=== PATIENT | male | born 1930 | race Caucasian/White ===

== ENCOUNTER → 2016-11-15 | Outpatient (CLI) | payer OTHER ==
[~2016-11-15] VITALS: Ht 177.8 cm; Wt 75.3 kg
[~2016-11-15] MED LIST: ADENOSINE 63 MG in GIVE UN-DILUTED 0 ML IV ONE; ADENOSINE 90 MG/30 ML INJ IV ONE; DABI75CA3 PO; ESOM40CA39 PO; LEVO100T8 PO; MEGE40SU PO; TOBR0.3S RIGHTEYE
[2016-11-15 11:51] LABS: Urine Bilirubin Negative (Negative); Urine Blood Negative /uL (Negative); Urine Color Yellow (Yellow); Urine Glucose Normal (Normal); Urine Ketone Negative (Negative); Urine Nitrite Negative (Negative); Urine Urobilinogen Normal (Negative)
[2016-11-15 12:08] LABS: Basophils # (auto) 0 uL; Basophils % (auto) 0.3 % (0.0-2.0); CONDITION Y; Eosinophils # (auto) 0 uL; Eosinophils % (auto) 0.8 % (0.0-7.0); Hematocrit 39.7 % (41.0-53.0); Hemoglobin 13.6 g/dL (13.5-17.5); Lymphocytes # (auto) 1.5 uL; Lymphocytes % (auto) 42.6 % (10.0-50.0); Mean Corpuscular Hemoglobin 31.2 pg (28.0-32.0); Mean Corpuscular Hgb Conc. 34.2 g/dL (32.0-36.0); Mean Corpuscular Volume 91.3 fL (80.0-100.0); Mean Platelet Volume 10.5 fL (7.4-10.4); Monocytes # (auto) 0.2 uL; Monocytes % (auto) 6.9 % (0.0-12.0); Neutrophils # (auto) 1.7 uL; Neutrophils % (auto) 49.4 % (37.0-80.0); Platelet Count (auto) 84 10^3/uL (140-450); Red Cell Distribution Width 14.1 % (11.6-16.0); White Blood Cell 3.5 10^3/uL (4.4-10.8)
[2016-11-15 16:34] LABS: Albumin 4.2 g/dL (3.4-5.0); BUN/Creatinine Ratio 21.9; Bilirubin, Direct 0.1 mg/dL (0-0.2); Bilirubin, Total 0.5 mg/dL (0.2-1.0); Calcium 9.5 mg/dL (8.5-10.1); Total Protein 7.9 g/dL (6.4-8.2)
== END | disposition home or self-care (01) ==
LOC: Rad HDHVI 08:28
PROVIDERS: ATTEND Internal Medicine Cardiovascular Disease
DX: I11.0 Hypertensive heart disease with heart failure (principal); I50.23 Acute on chronic systolic (congestive) heart failure; I48.0 Paroxysmal atrial fibrillation; E03.9 Hypothyroidism, unspecified; E11.9 Type 2 diabetes mellitus without complications; E78.00 Pure hypercholesterolemia, unspecified; D64.9 Anemia, unspecified; E55.9 Vitamin D deficiency, unspecified; K74.1 Hepatic sclerosis; N39.0 Urinary tract infection, site not specified; R97.20 Elevated prostate specific antigen [PSA]; R53.81 Other malaise; Z72.0 Tobacco use
CPT/HCPCS: 36415; 78452; 80048; 80061; 80076; 81003; 82306; 83036; 84153; 84403; 84443; 85025; 93005; 93306; 96374; 96375; A9500; J0153

== ENCOUNTER → 2017-08-14 | Outpatient (CLI) | payer OTHER ==
[~2017-08-14] MED LIST changes: -ADENOSINE 63 MG in GIVE UN-DILUTED 0 ML IV ONE; -ADENOSINE 90 MG/30 ML INJ IV ONE; +LEVOFLOXACIN 500MG 100 ML IV ONE; +LEVOFLOXACIN 500MG 100 ML IV SCH; +methylPREDNISolone SOD SUCC 125 MG/2 ML VL IV ONE; +methylPREDNISolone SOD SUCC 125 MG/2 ML VL ONE
[2017-08-14 11:15] VITALS: BP 104/60
[2017-08-14 12:35] VITALS: BP 102/84
[2017-08-14 16:12] LABS: Urine Blood Negative /uL (Negative); Urine Specific Gravity 1.024 (1.001-1.035)
[2017-08-14 16:24] LABS: Potassium 4.4 mmol/L (3.5-5.1)
[2017-08-14 16:37] LABS: Hematocrit 34.9 % (41.0-53.0); Hemoglobin 11.9 g/dL (13.5-17.5); Mean Corpuscular Hemoglobin 30.8 pg (28.0-32.0); Mean Corpuscular Hgb Conc. 34.1 g/dL (32.0-36.0); Mean Corpuscular Volume 90.3 fL (80.0-100.0); Platelet Count (auto) 66 10^3/uL (140-450); Red Blood Cells 3.86 10^6/uL (4.5-5.90); Red Cell Distribution Width 13.4 % (11.8-14.3); White Blood Cell 4.3 10^3/uL (4.4-10.8)
[2017-08-14 16:51] LABS: Basophils % (manual) 0 (0.0-2.0); Blast Cells 0; Metamyelocytes % 0; Myelocytes % 0; Promyelocytes % 0; Reactive Lymphocytes 0
[2017-08-14 17:13] LABS: BUN/Creatinine Ratio 19.6; Calcium 8.9 mg/dL (8.5-10.1)
[2017-08-14 18:03] LABS: Band Neutrophils % (manual) 4; Eosinophils % (manual) 1 (0-7); Lymphocytes % (manual) 18 (10.0-50.0); Monocytes % (manual) 12 (0-12)
== END | disposition home or self-care (01) ==
LOC: Rad HDHVI 11:13
PROVIDERS: ATTEND Internal Medicine Cardiovascular Disease
DX: I50.23 Acute on chronic systolic (congestive) heart failure (principal); D64.9 Anemia, unspecified; N39.0 Urinary tract infection, site not specified; R09.02 Hypoxemia; K44.9 Diaphragmatic hernia without obstruction or gangrene; M85.88 Other specified disorders of bone density and structure, other site; J47.0 Bronchiectasis with acute lower respiratory infection
CPT/HCPCS: 36415; 71250; 80048; 81003; 85007; 85027; 96365; 96375; G0463; J1956

== ENCOUNTER → 2017-09-03 | Outpatient (CLI) | payer OTHER ==
[~2017-09-03] MED LIST changes: -LEVOFLOXACIN 500MG 100 ML IV ONE; -LEVOFLOXACIN 500MG 100 ML IV SCH; +TESTOSTERONE CYPIONATE 200 MG/ML 1ML VIAL IM ONE; -methylPREDNISolone SOD SUCC 125 MG/2 ML VL IV ONE; -methylPREDNISolone SOD SUCC 125 MG/2 ML VL ONE
[2017-09-03 14:30] VITALS: BP 138/77
[2017-09-03 15:23] VITALS: BP 138/85
== END | disposition home or self-care (01) ==
LOC: CHF HDHVI 14:16
PROVIDERS: ATTEND Internal Medicine Cardiovascular Disease
DX: E29.1 Testicular hypofunction (principal); R53.83 Other fatigue; I50.23 Acute on chronic systolic (congestive) heart failure
CPT/HCPCS: 96372; G0463; J1071; 93971

== ENCOUNTER → 2017-09-11 | Outpatient (CLI) | payer OTHER ==
[~2017-09-11] MED LIST changes: -TESTOSTERONE CYPIONATE 200 MG/ML 1ML VIAL IM ONE
== END | disposition home or self-care (01) ==
LOC: Rad HDHVI 15:12
PROVIDERS: ATTEND Internal Medicine Cardiovascular Disease
DX: I73.9 Peripheral vascular disease, unspecified (principal)
CPT/HCPCS: 93926

== ENCOUNTER → 2017-09-17 | Outpatient (CLI) | payer OTHER ==
[~2017-09-17] MED LIST changes: +TESTOSTERONE CYPIONATE 200 MG/ML 1ML VIAL IM ONE
[2017-09-17 13:30] VITALS: BP 112/81
[2017-09-17 14:00] VITALS: BP 117/72
== END | disposition home or self-care (01) ==
LOC: CHF HDHVI 13:37
PROVIDERS: ATTEND Internal Medicine Cardiovascular Disease
DX: E29.1 Testicular hypofunction (principal); I11.0 Hypertensive heart disease with heart failure; I48.0 Paroxysmal atrial fibrillation; I50.32 Chronic diastolic (congestive) heart failure; E11.9 Type 2 diabetes mellitus without complications; E03.9 Hypothyroidism, unspecified; Z72.0 Tobacco use
CPT/HCPCS: 96372; G0463; J1071

== ENCOUNTER → 2017-09-30 | Outpatient (CLI) | payer OTHER ==
[~2017-09-30] VITALS: Ht 1 cm; Wt 0.5 kg
[~2017-09-30] MED LIST changes: +IOHEXOL 350 MG/ML 100ML IJ ONE; +SODIUM CHLORIDE 0.9% 1,000 ML IV SCH; +predniSONE 20 MG TAB ONE; +predniSONE 20 MG TAB PO ONE
[2017-09-30 09:50] VITALS: BP 127/76
[2017-09-30 12:23] LABS: Hematocrit 32.6 % (41.0-53.0); Hemoglobin 10.9 g/dL (13.5-17.5); Mean Corpuscular Hgb Conc. 33.3 g/dL (32.0-36.0); Red Blood Cells 3.62 10^6/uL (4.5-5.90); Red Cell Distribution Width 18.3 % (11.8-14.3); White Blood Cell 4.3 10^3/uL (4.4-10.8)
[2017-09-30 12:57] LABS: Band Neutrophils % (manual) 0; Basophils % (manual) 0 (0.0-2.0); Blast Cells 0; Eosinophils % (manual) 0 (0-7); Metamyelocytes % 0; Myelocytes % 0; Platelet Count (auto) 57 10^3/uL (140-450); Promyelocytes % 0; Reactive Lymphocytes 0
[2017-09-30 13:05] LABS: Albumin 2.8 g/dL (3.4-5.0); BUN/Creatinine Ratio 16.8; Calcium 8.9 mg/dL (8.5-10.1); Potassium 3.9 mmol/L (3.5-5.1); Total Protein 7.2 g/dL (6.4-8.2)
[2017-09-30 13:24] LABS: Lymphocytes % (manual) 17 (10.0-50.0); Monocytes % (manual) 4 (0-12)
[2017-09-30 14:10] VITALS: BP 114/71
== END | disposition home or self-care (01) ==
LOC: CHF HDHVI 10:04
PROVIDERS: ATTEND Internal Medicine Cardiovascular Disease
DX: J43.9 Emphysema, unspecified (principal); J02.9 Acute pharyngitis, unspecified; E03.9 Hypothyroidism, unspecified; I13.0 Hypertensive heart and chronic kidney disease with heart failure and stage 1 through stage 4 chronic kidney disease, or unspecified chronic kidney disease; E11.22 Type 2 diabetes mellitus with diabetic chronic kidney disease; N18.3 Chronic kidney disease, stage 3 (moderate); I50.23 Acute on chronic systolic (congestive) heart failure; K21.9 Gastro-esophageal reflux disease without esophagitis; D50.9 Iron deficiency anemia, unspecified; J42 Unspecified chronic bronchitis; E29.1 Testicular hypofunction; E07.9 Disorder of thyroid, unspecified; I50.32 Chronic diastolic (congestive) heart failure; I48.0 Paroxysmal atrial fibrillation; Z99.81 Dependence on supplemental oxygen; Z79.899 Other long term (current) drug therapy; Z86.73 Personal history of transient ischemic attack (TIA), and cerebral infarction without residual deficits
CPT/HCPCS: 36415; 70491; 80053; 82565; 84443; 85007; 85027; 96360; 96372; G0463; J1071; J7030; J7512; Q9967; 96365

== ENCOUNTER 2017-10-13 20:20 | Inpatient (IN) | payer OTHER ==
[~2017-10-13] VITALS: Ht 172.7 cm; Wt 74.5 kg
[~2017-10-13 20:20] MED LIST changes: -IOHEXOL 350 MG/ML 100ML IJ ONE; -SODIUM CHLORIDE 0.9% 1,000 ML IV SCH; -TESTOSTERONE CYPIONATE 200 MG/ML 1ML VIAL IM ONE; -predniSONE 20 MG TAB ONE; -predniSONE 20 MG TAB PO ONE
[2017-10-13 21:16] LABS: Basophils # (auto) 0 uL; Eosinophils # (auto) 0 uL; Hemoglobin 10.5 g/dL (13.5-17.5); Monocytes # (auto) 0.2 uL; Neutrophils # (auto) 5.2 uL; Nucleated Red Blood Cells % 0.1 %; White Blood Cell 6.4 10^3/uL (4.4-10.8)
[2017-10-13 21:18] LABS: Basophils % (auto) 0.6 % (0.0-2.0); Eosinophils % (auto) 0.2 % (0.0-7.0); Hematocrit 31.4 % (41.0-53.0); Lymphocytes # (auto) 0.9 uL; Lymphocytes % (auto) 14.7 % (10.0-50.0); Mean Corpuscular Hemoglobin 30.8 pg (28.0-32.0); Mean Corpuscular Hgb Conc. 33.3 g/dL (32.0-36.0); Mean Corpuscular Volume 92.4 fL (80.0-100.0); Monocytes % (auto) 3.3 % (0.0-12.0); Neutrophils % (auto) 81.2 % (37.0-80.0); Platelet Count (auto) 41 10^3/uL (140-450)
[2017-10-13] MEDS ORDERED: methylPREDNISolone SOD SUCC 125 MG/2 ML VL IV ONE (21:30)
[2017-10-13] MEDS ORDERED: FAMOTIDINE (10MG/ML) 2ML VL IV ONE (21:30)
[2017-10-13] MEDS ORDERED: diphenhdrAMINE HCL 50 MG/1 ML VL IV ONE (21:30)
[2017-10-13] MEDS ORDERED: LORazepam 2MG/ML-1ML VIAL ONE ×2 (21:38→21:41)
[2017-10-13 21:45] LABS: Albumin 2.5 g/dL (3.4-5.0); BUN/Creatinine Ratio 14.6; Bilirubin, Total 0.4 mg/dL (0.2-1.0); Calcium 8.1 mg/dL (8.5-10.1); Magnesium 2.3 mg/dL (1.6-2.6); Potassium 4.6 mmol/L (3.5-5.1); Total Protein 6.3 g/dL (6.4-8.2)
[2017-10-13 21:48] LABS: Red Cell Distribution Width 21.6 % (11.8-14.3)
[2017-10-13 22:13] LABS: Lactic Acid w/Reflex 3.7 mmol/L (0.4-2.0)
[2017-10-13] MEDS ORDERED: LEVOFLOXACIN 750MG 150 ML IV ONE (22:15)
[2017-10-13] MEDS ORDERED: LORazepam 2MG/ML-1ML VIAL IV ONE (22:15)
[2017-10-13] MEDS ORDERED: PIPERACILLIN-TAZOB 3.375GM 100 ML IV ONE (22:15)
[2017-10-13] MEDS ORDERED: ACETAMINOPHEN 650 mg PER 20 mL UD GT ONE (22:30)
[2017-10-13] MEDS ORDERED: SODIUM CHLORIDE 0.9% 2,000 ML IV ONE (22:30)
[2017-10-13 22:52] LABS: INR 1.26 (0.9-1.15); Prothrombin Time 13.3 sec (9.27-12.13)
[2017-10-13] MEDS ORDERED: ACETAMINOPHEN 650 MG RECT SUPP PR ONE (22:54)
[2017-10-13 23:24] LABS: Urine Bacteria NONE SEEN /hpf (None Seen); Urine Blood TRACE /uL (Negative); Urine Mucus FEW (None Seen); Urine Specific Gravity 1.019 (1.001-1.035); Urine WBC 1 /hpf (0 - 3)
[2017-10-14] MEDS ORDERED: ACETAMINOPHEN 650 MG RECT SUPP PR ONE
[2017-10-14] MEDS ORDERED: SODIUM CHLORIDE 0.9% 1,000 ML IV SCH (00:15)
[2017-10-14] MEDS ORDERED: MORPHINE SULF(PF) 0.5MG/ML 10ML VIAL IV PRN (00:15)
[2017-10-14] MEDS ORDERED: NITROGLYCERIN 0.4 MG SL TAB SL PRN (00:15)
[2017-10-14] MEDS ORDERED: ONDANSETRON HCL 4 MG/2 ML VIAL IV PRN (00:15)
[2017-10-14] MEDS ORDERED: diphenhdrAMINE HCL 25 MG CAP PO PRN (00:15)
[2017-10-14] MEDS ORDERED: ACETAMINOPHEN 325 MG TAB PO PRN (00:15)
[2017-10-14] MEDS ORDERED: LEVOFLOXACIN 750MG 150 ML IV SCH (01:00)
[2017-10-14] MEDS: ENOXAPARIN SOD 30 MG/0.3 ML SYRINGE SC SCH (02:18)
[2017-10-14] MEDS: SODIUM CHLORIDE 0.9% 1,000 ML IV SCH ×3 (03:45→23:30)
[2017-10-14 05:45] VITALS: BP 103/58
[2017-10-14 06:05] VITALS: BP 100/60
[2017-10-14 06:50] VITALS: BP 90/58
[2017-10-14] MEDS ORDERED: cefTRIAXone 1GM/10ml IVPUSH 10 ML IV SCH (09:00)
[2017-10-14] MEDS: LEVOTHYROXINE SODIUM 25 MCG TAB PO SCH (09:37)
[2017-10-14] MEDS: methylPREDNISolone SOD SUCC 125 MG/2 ML VL IV SCH ×2 (09:37→22:23)
[2017-10-14] MEDS: LEVOTHYROXINE SODIUM 100 MCG TAB PO SCH (09:37)
[2017-10-14] MEDS ORDERED: LEVOTHYROXINE SODIUM 25 MCG TAB PO SCH (10:00)
[2017-10-14] MEDS: PANTOPRAZOLE 40 MG TAB PO SCH (10:00)
[2017-10-14 11:28] VITALS: BP 101/64
[2017-10-14 11:43] VITALS: BP 105/73
[2017-10-14] MEDS ORDERED: VANCOMYCIN PER PHARMACY 0 MG IV SCH (13:15)
[2017-10-14] MEDS ORDERED: VANCOMYCIN 1GM/250ML 250 ML IV ONE (14:00)
[2017-10-14] MEDS: LORazepam 0.5 MG TAB PO PRN (15:50)
[2017-10-14 18:15] VITALS: BP 94/108
[2017-10-14] MEDS ORDERED: HALOPERIDOL LACTATE 5 MG/ML INJ VIAL ONE (18:28)
[2017-10-14] MEDS ORDERED: HALOPERIDOL LACTATE 5 MG/ML INJ VIAL IM ONE (18:30)
[2017-10-14] MEDS ORDERED: LORazepam 2MG/ML-1ML VIAL IM ONE (19:45)
[2017-10-14] MEDS ORDERED: diphenhdrAMINE HCL 50 MG/1 ML VL IV ONE (19:45)
[2017-10-14] MEDS: ATORVASTATIN 20 MG TAB PO SCH (22:00)
[2017-10-14 22:01] LABS: % Iron Saturation 11.3 % (20-55)
[2017-10-15] MEDS: ENOXAPARIN SOD 30 MG/0.3 ML SYRINGE SC SCH (02:00)
[2017-10-15] MEDS: HALOPERIDOL LACTATE 5 MG/ML INJ VIAL IM PRN ×3 (02:27→14:22)
[2017-10-15 06:06] LABS: Basophils # (auto) 0 uL; Eosinophils # (auto) 0 uL; Monocytes # (auto) 0.2 uL
[2017-10-15 06:08] LABS: Basophils % (auto) 0.3 % (0.0-2.0); Hematocrit 26.3 % (41.0-53.0); Lymphocytes # (auto) 0.3 uL; Lymphocytes % (auto) 5.9 % (10.0-50.0); Mean Corpuscular Hemoglobin 30.9 pg (28.0-32.0); Mean Corpuscular Hgb Conc. 34.1 g/dL (32.0-36.0); Mean Corpuscular Volume 90.5 fL (80.0-100.0); Neutrophils # (auto) 5.2 uL; Neutrophils % (auto) 90.8 % (37.0-80.0); Nucleated Red Blood Cells % 0.1 %; White Blood Cell 5.7 10^3/uL (4.4-10.8)
[2017-10-15 06:11] LABS: Platelet Count (auto) 40 10^3/uL (140-450); Red Cell Distribution Width 21.2 % (11.8-14.3)
[2017-10-15 06:39] LABS: Albumin 2.4 g/dL (3.4-5.0); Calcium 7.5 mg/dL (8.5-10.1)
[2017-10-15 06:41] LABS: BUN/Creatinine Ratio 20.3
[2017-10-15 06:44] LABS: Bilirubin, Total 0.3 mg/dL (0.2-1.0); Total Protein 5.8 g/dL (6.4-8.2)
[2017-10-15] MEDS: LEVOTHYROXINE SODIUM 25 MCG TAB PO SCH (07:00)
[2017-10-15] MEDS: LEVOTHYROXINE SODIUM 100 MCG TAB PO SCH (07:00)
[2017-10-15] MEDS: PANTOPRAZOLE 40 MG TAB PO SCH (07:41)
[2017-10-15] MEDS: SODIUM CHLORIDE 0.9% 1,000 ML IV SCH (09:45)
[2017-10-15] MEDS: methylPREDNISolone SOD SUCC 125 MG/2 ML VL IV SCH ×2 (09:59→21:03)
[2017-10-15] MEDS: LEVOFLOXACIN 250MG 50 ML IV SCH (09:59)
[2017-10-15] MEDS ORDERED: D5W 5% 1,000 ML IV SCH (10:00)
[2017-10-15] MEDS: VANCOMYCIN 1GM/250ML 250 ML IV SCH (10:43)
[2017-10-15] MEDS: LORazepam 0.5 MG TAB PO PRN (14:22)
[2017-10-15] MEDS: D5W 5% 1,000 ML IV SCH (14:38)
[2017-10-15 18:43] VITALS: BP 127/75
[2017-10-15] MEDS ORDERED: PNEUMOCOCCAL VACC POLYS 25 MCG/0.5 ML VIAL IM ONE (19:00)
[2017-10-15] MEDS ORDERED: HALOPERIDOL LACTATE 5 MG/ML INJ VIAL IM PRN (19:30)
[2017-10-15] MEDS ORDERED: ASPirin-EC 81 mg tab PO SCH (19:41)
[2017-10-15] MEDS: ATORVASTATIN 20 MG TAB PO SCH (21:03)
[2017-10-15] MEDS: TEMAZEPAM 15 MG CAP PO PRN (21:03)
[2017-10-15 22:00] VITALS: BP 106/56
[2017-10-16] MEDS: D5W 5% 1,000 ML IV SCH (04:19)
[2017-10-16] MEDS: VANCOMYCIN 1GM/250ML 250 ML IV SCH (04:32)
[2017-10-16 05:00] VITALS: BP 122/75
[2017-10-16 06:05] LABS: Basophils # (auto) 0 uL; Eosinophils # (auto) 0 uL; Hemoglobin 8.6 g/dL (13.5-17.5); Mean Corpuscular Hemoglobin 30.4 pg (28.0-32.0); Mean Corpuscular Volume 90.1 fL (80.0-100.0); Monocytes # (auto) 0.1 uL; Nucleated Red Blood Cells % 0.1 %; Platelet Count (auto) 43 10^3/uL (140-450); Red Blood Cells 2.82 10^6/uL (4.5-5.90)
[2017-10-16 06:11] LABS: Basophils % (auto) 0.1 % (0.0-2.0); Hematocrit 25.4 % (41.0-53.0); Lymphocytes # (auto) 0.4 uL; Mean Corpuscular Hgb Conc. 33.7 g/dL (32.0-36.0); Monocytes % (auto) 2.2 % (0.0-12.0); Neutrophils # (auto) 4.6 uL; Neutrophils % (auto) 90.7 % (37.0-80.0)
[2017-10-16 06:13] LABS: Red Cell Distribution Width 21.2 % (11.8-14.3)
[2017-10-16 06:29] LABS: Albumin 2.2 g/dL (3.4-5.0); Bilirubin, Total 0.3 mg/dL (0.2-1.0); Calcium 7.4 mg/dL (8.5-10.1); Potassium 3.8 mmol/L (3.5-5.1); Total Protein 5.3 g/dL (6.4-8.2)
[2017-10-16] MEDS: LEVOTHYROXINE SODIUM 100 MCG TAB PO SCH (06:40)
[2017-10-16] MEDS: LEVOTHYROXINE SODIUM 25 MCG TAB PO SCH (06:41)
[2017-10-16 09:00] VITALS: BP 98/53
[2017-10-16] MEDS ORDERED: ASPirin-EC 81 mg tab PO SCH (10:00)
[2017-10-16] MEDS: LEVOFLOXACIN 250MG 50 ML IV SCH (10:50)
[2017-10-16] MEDS: methylPREDNISolone SOD SUCC 125 MG/2 ML VL IV SCH ×2 (10:50→22:31)
[2017-10-16] MEDS: PANTOPRAZOLE 40 MG TAB PO SCH (10:50)
[2017-10-16 13:00] VITALS: BP 113/68
[2017-10-16 17:00] VITALS: BP 123/88
[2017-10-16 22:00] VITALS: BP 122/69
[2017-10-16] MEDS: TEMAZEPAM 15 MG CAP PO PRN (22:30)
[2017-10-16] MEDS: ATORVASTATIN 20 MG TAB PO SCH (22:30)
[2017-10-17 04:37] VITALS: BP 130/73
[2017-10-17 06:20] LABS: Basophils # (auto) 0 uL; Eosinophils # (auto) 0 uL; Hemoglobin 9.1 g/dL (13.5-17.5); Lymphocytes # (auto) 0.4 uL; Nucleated Red Blood Cells % 0.1 %
[2017-10-17 06:23] LABS: Basophils % (auto) 0.3 % (0.0-2.0); Hematocrit 26.3 % (41.0-53.0); Lymphocytes % (auto) 8.3 % (10.0-50.0); Mean Corpuscular Hemoglobin 30.8 pg (28.0-32.0); Mean Corpuscular Hgb Conc. 34.5 g/dL (32.0-36.0); Mean Corpuscular Volume 89.2 fL (80.0-100.0); Monocytes # (auto) 0 uL; Neutrophils # (auto) 4.5 uL; Neutrophils % (auto) 90.4 % (37.0-80.0); Red Blood Cells 2.95 10^6/uL (4.5-5.90)
[2017-10-17 06:25] LABS: Platelet Count (auto) 41 10^3/uL (140-450); Red Cell Distribution Width 20.8 % (11.8-14.3)
[2017-10-17] MEDS: LEVOTHYROXINE SODIUM 100 MCG TAB PO SCH (06:27)
[2017-10-17] MEDS: LEVOTHYROXINE SODIUM 25 MCG TAB PO SCH (06:27)
[2017-10-17 06:41] LABS: Albumin 2.3 g/dL (3.4-5.0); Bilirubin, Total 0.3 mg/dL (0.2-1.0); Calcium 7.6 mg/dL (8.5-10.1); Potassium 3.9 mmol/L (3.5-5.1); Total Protein 5.4 g/dL (6.4-8.2)
[2017-10-17] MEDS: methylPREDNISolone SOD SUCC 125 MG/2 ML VL IV SCH ×2 (11:02→22:41)
[2017-10-17] MEDS: PANTOPRAZOLE 40 MG TAB PO SCH (11:02)
[2017-10-17] MEDS: LEVOFLOXACIN 250MG 50 ML IV SCH (11:02)
[2017-10-17 22:00] VITALS: BP 151/90
[2017-10-17] MEDS: ATORVASTATIN 20 MG TAB PO SCH (22:41)
[2017-10-18 04:05] VITALS: BP 116/79
[2017-10-18 06:01] LABS: Basophils # (auto) 0 uL; Basophils % (auto) 0.1 % (0.0-2.0); Eosinophils # (auto) 0 uL; Hemoglobin 9.4 g/dL (13.5-17.5); Lymphocytes # (auto) 0.5 uL; Mean Corpuscular Volume 90.4 fL (80.0-100.0); Monocytes # (auto) 0.1 uL; Monocytes % (auto) 2.1 % (0.0-12.0); Neutrophils % (auto) 88.6 % (37.0-80.0)
[2017-10-18 06:03] LABS: Eosinophils % (auto) 0.1 % (0.0-7.0); Hematocrit 27.6 % (41.0-53.0); Lymphocytes % (auto) 9.1 % (10.0-50.0); Mean Corpuscular Hemoglobin 30.8 pg (28.0-32.0); Neutrophils # (auto) 4.5 uL; Nucleated Red Blood Cells % 0.2 %; Platelet Count (auto) 40 10^3/uL (140-450); Red Blood Cells 3.05 10^6/uL (4.5-5.90); White Blood Cell 5.1 10^3/uL (4.4-10.8)
[2017-10-18 06:04] LABS: Red Cell Distribution Width 21.5 % (11.8-14.3)
[2017-10-18] MEDS: LEVOTHYROXINE SODIUM 100 MCG TAB PO SCH (07:15)
[2017-10-18] MEDS: LEVOTHYROXINE SODIUM 25 MCG TAB PO SCH (07:15)
[2017-10-18 08:46] VITALS: BP 119/81
[2017-10-18] MEDS: methylPREDNISolone SOD SUCC 125 MG/2 ML VL IV SCH ×2 (10:38→21:47)
[2017-10-18] MEDS: PANTOPRAZOLE 40 MG TAB PO SCH (10:38)
[2017-10-18] MEDS: LEVOFLOXACIN 250MG 50 ML IV SCH (10:38)
[2017-10-18 13:14] VITALS: BP 114/66
[2017-10-18 16:50] VITALS: BP 139/81
[2017-10-18] MEDS: ATORVASTATIN 20 MG TAB PO SCH (21:47)
[2017-10-18 22:00] VITALS: BP 129/74
[2017-10-19 05:00] VITALS: BP 109/54
[2017-10-19 05:55] LABS: Hematocrit 28.5 % (41.0-53.0)
[2017-10-19 05:57] LABS: Hemoglobin 9.7 g/dL (13.5-17.5); Mean Corpuscular Hemoglobin 30.4 pg (28.0-32.0); Mean Corpuscular Volume 89.4 fL (80.0-100.0); Platelet Count (auto) 36 10^3/uL (140-450); Red Blood Cells 3.19 10^6/uL (4.5-5.90); White Blood Cell 4.9 10^3/uL (4.4-10.8)
[2017-10-19] MEDS: LEVOTHYROXINE SODIUM 100 MCG TAB PO SCH (05:59)
[2017-10-19] MEDS: LEVOTHYROXINE SODIUM 25 MCG TAB PO SCH (05:59)
[2017-10-19 06:14] LABS: Basophils % (manual) 0 (0.0-2.0); Blast Cells 0; Eosinophils % (manual) 0 (0-7); Metamyelocytes % 0; Myelocytes % 0; Promyelocytes % 0; Reactive Lymphocytes 0; Red Cell Distribution Width 21.4 % (11.8-14.3)
[2017-10-19 07:14] LABS: Band Neutrophils % (manual) 4; Lymphocytes % (manual) 12 (10.0-50.0); Monocytes % (manual) 1 (0-12)
[2017-10-19] MEDS: HYDROcodone-ACET 5/325MG TAB PO PRN ×3 (08:00→16:05)
[2017-10-19 08:54] VITALS: BP 128/66
[2017-10-19] MEDS: methylPREDNISolone SOD SUCC 125 MG/2 ML VL IV SCH (09:44)
[2017-10-19] MEDS: LEVOFLOXACIN 250MG 50 ML IV SCH (09:44)
[2017-10-19] MEDS: PANTOPRAZOLE 40 MG TAB PO SCH (09:44)
[2017-10-19 13:00] VITALS: BP 124/64
[2017-10-19 16:29] VITALS: BP 124/69
[2017-10-19 21:30] VITALS: BP 143/80
[2017-10-20] MEDS: methylPREDNISolone SOD SUCC 125 MG/2 ML VL IV SCH ×3 (00:12→22:25)
[2017-10-20] MEDS: ATORVASTATIN 20 MG TAB PO SCH ×2 (00:12→22:25)
[2017-10-20 06:15] LABS: Hemoglobin 9.6 g/dL (13.5-17.5); White Blood Cell 5.3 10^3/uL (4.4-10.8)
[2017-10-20] MEDS: LEVOTHYROXINE SODIUM 100 MCG TAB PO SCH (06:22)
[2017-10-20] MEDS: LEVOTHYROXINE SODIUM 25 MCG TAB PO SCH (06:22)
[2017-10-20 06:24] LABS: Hematocrit 27.6 % (41.0-53.0); Mean Corpuscular Hemoglobin 30.8 pg (28.0-32.0); Mean Corpuscular Hgb Conc. 34.6 g/dL (32.0-36.0); Mean Corpuscular Volume 88.9 fL (80.0-100.0); Platelet Count (auto) 32 10^3/uL (140-450); Red Blood Cells 3.11 10^6/uL (4.5-5.90)
[2017-10-20 06:27] LABS: Basophils % (manual) 0 (0.0-2.0); Blast Cells 0; Eosinophils % (manual) 0 (0-7); Metamyelocytes % 0; Myelocytes % 0; Promyelocytes % 0; Reactive Lymphocytes 0; Red Cell Distribution Width 21.3 % (11.8-14.3)
[2017-10-20 07:40] LABS: Band Neutrophils % (manual) 3; Lymphocytes % (manual) 8 (10.0-50.0); Monocytes % (manual) 3 (0-12)
[2017-10-20 08:00] VITALS: BP 113/70
[2017-10-20 09:00] VITALS: BP 113/70
[2017-10-20] MEDS: PANTOPRAZOLE 40 MG TAB PO SCH (09:35)
[2017-10-20] MEDS: LEVOFLOXACIN 250MG 50 ML IV SCH (09:35)
[2017-10-20 13:00] VITALS: BP 144/77
[2017-10-20 17:00] VITALS: BP 143/86
[2017-10-20 21:30] VITALS: BP 108/74
[2017-10-21 05:00] VITALS: BP 145/81
[2017-10-21 05:57] LABS: Hemoglobin 10.2 g/dL (13.5-17.5)
[2017-10-21 05:58] LABS: Mean Corpuscular Hemoglobin 30.5 pg (28.0-32.0); Mean Corpuscular Volume 89.7 fL (80.0-100.0); Platelet Count (auto) 38 10^3/uL (140-450); Red Blood Cells 3.34 10^6/uL (4.5-5.90); White Blood Cell 6.7 10^3/uL (4.4-10.8)
[2017-10-21 06:15] LABS: Red Cell Distribution Width 21.3 % (11.8-14.3)
[2017-10-21 06:16] LABS: Basophils % (manual) 0 (0.0-2.0); Blast Cells 0; Promyelocytes % 0; Reactive Lymphocytes 0
[2017-10-21 06:54] LABS: Band Neutrophils % (manual) 4; Eosinophils % (manual) 1 (0-7); Lymphocytes % (manual) 9 (10.0-50.0); Metamyelocytes % 1; Monocytes % (manual) 4 (0-12); Myelocytes % 1
[2017-10-21] MEDS: LEVOTHYROXINE SODIUM 25 MCG TAB PO SCH (06:58)
[2017-10-21] MEDS: LEVOTHYROXINE SODIUM 100 MCG TAB PO SCH (06:59)
[2017-10-21 08:45] VITALS: BP 133/79
[2017-10-21] MEDS: PANTOPRAZOLE 40 MG TAB PO SCH (10:50)
[2017-10-21] MEDS: methylPREDNISolone SOD SUCC 125 MG/2 ML VL IV SCH (10:51)
[2017-10-21] MEDS: LEVOFLOXACIN 250MG 50 ML IV SCH (10:51)
[2017-10-21 13:00] VITALS: BP 142/99
[2017-10-21 17:00] VITALS: BP 135/70
[2017-10-27] MEDS ORDERED: LORazepam 2MG/ML-1ML VIAL IV STA (07:05)
== END 2017-10-21 20:25 | disposition home or self-care (01) | DRG 871 ==
LOC: EDUNIT# 20:20 → ER 20:20 → EDBD 20:20 → TELE 20:21 → TELE-WESTW 10-15 17:21 → WEST WING 10-15 20:35
PROVIDERS: ADMIT Nurse Practitioner; ATTEND Internal Medicine Cardiovascular Disease
PROC: 30233L1 Transfusion of Nonautologous Fresh Plasma into Peripheral Vein, Percutaneous Approach (ICD-10-PCS; principal; 2017-10-14)
PROC: 30233R1 Transfusion of Nonautologous Platelets into Peripheral Vein, Percutaneous Approach (ICD-10-PCS; 2017-10-14)
PROC: 30233K1 Transfusion of Nonautologous Frozen Plasma into Peripheral Vein, Percutaneous Approach (ICD-10-PCS; 2017-10-14)
DX: A41.9 Sepsis, unspecified organism (principal); J96.20 Acute and chronic respiratory failure, unspecified whether with hypoxia or hypercapnia; G93.41 Metabolic encephalopathy; E44.0 Moderate protein-calorie malnutrition; D61.818 Other pancytopenia; N17.9 Acute kidney failure, unspecified; I48.2 Chronic atrial fibrillation; R21 Rash and other nonspecific skin eruption; I12.9 Hypertensive chronic kidney disease with stage 1 through stage 4 chronic kidney disease, or unspecified chronic kidney disease; N18.3 Chronic kidney disease, stage 3 (moderate); N19 Unspecified kidney failure; Z86.73 Personal history of transient ischemic attack (TIA), and cerebral infarction without residual deficits; K21.9 Gastro-esophageal reflux disease without esophagitis; D50.9 Iron deficiency anemia, unspecified; E03.9 Hypothyroidism, unspecified; Z87.891 Personal history of nicotine dependence; Z99.81 Dependence on supplemental oxygen; Z86.718 Personal history of other venous thrombosis and embolism; Z82.49 Family history of ischemic heart disease and other diseases of the circulatory system; Z85.850 Personal history of malignant neoplasm of thyroid; Z80.42 Family history of malignant neoplasm of prostate; Z80.1 Family history of malignant neoplasm of trachea, bronchus and lung; Z79.899 Other long term (current) drug therapy; Z79.82 Long term (current) use of aspirin; J44.9 Chronic obstructive pulmonary disease, unspecified; Z88.0 Allergy status to penicillin; Z88.2 Allergy status to sulfonamides
CPT/HCPCS: 36415; 36430; 51702; 70450; 71045; 80053; 80202; 81001; 82607; 82728; 83010; 83540; 83550; 83605; 83615; 83735; 83880; 84295; 84484; 85007; 85025; 85027; 85610; 85652; 86850; 86880; 86900; 86901; 87040; 93005; 96365; 96375; 97116; 97530; A4565; J1956; J2543; J3490

== ENCOUNTER → 2017-10-31 | Outpatient (CLI) | payer OTHER ==
[2017-10-31 16:22] LABS: BUN/Creatinine Ratio 17.1; Potassium 4.1 mmol/L (3.5-5.1)
[2017-10-31 16:36] LABS: Basophils # (auto) 0 uL; Eosinophils # (auto) 0 uL; Eosinophils % (auto) 0.4 % (0.0-7.0); Lymphocytes # (auto) 1.2 uL; Monocytes # (auto) 0.3 uL; White Blood Cell 3.6 10^3/uL (4.4-10.8)
[2017-10-31 16:39] LABS: Basophils % (auto) 0.7 % (0.0-2.0); Hematocrit 34.8 % (41.0-53.0); Hemoglobin 11.3 g/dL (13.5-17.5); Lymphocytes % (auto) 33.9 % (10.0-50.0); Mean Corpuscular Hemoglobin 30.2 pg (28.0-32.0); Mean Corpuscular Hgb Conc. 32.4 g/dL (32.0-36.0); Mean Corpuscular Volume 93.3 fL (80.0-100.0); Monocytes % (auto) 7.7 % (0.0-12.0); Neutrophils % (auto) 57.3 % (37.0-80.0); Nucleated Red Blood Cells % 0.3 %; Platelet Count (auto) 57 10^3/uL (140-450); Red Blood Cells 3.73 10^6/uL (4.5-5.90)
[2017-10-31 16:47] LABS: Red Cell Distribution Width 25.3 % (11.8-14.3)
== END | disposition home or self-care (01) ==
LOC: LAB 13:33
PROVIDERS: ATTEND Internal Medicine Cardiovascular Disease
DX: I13.0 Hypertensive heart and chronic kidney disease with heart failure and stage 1 through stage 4 chronic kidney disease, or unspecified chronic kidney disease (principal); E11.22 Type 2 diabetes mellitus with diabetic chronic kidney disease; I50.23 Acute on chronic systolic (congestive) heart failure; N18.3 Chronic kidney disease, stage 3 (moderate); D64.9 Anemia, unspecified; J44.9 Chronic obstructive pulmonary disease, unspecified; E03.9 Hypothyroidism, unspecified; Z79.899 Other long term (current) drug therapy
CPT/HCPCS: 36415; 80048; 85025

== ENCOUNTER → 2017-12-02 | Outpatient (CLI) | payer OTHER ==
[~2017-12-02] MED LIST changes: -LEVO100T8 PO; +LEVO125T7 PO
[2017-12-02 16:06] LABS: White Blood Cell 3.1 10^3/uL (4.4-10.8)
[2017-12-02 16:11] LABS: Hematocrit 31.5 % (41.0-53.0); Hemoglobin 10.4 g/dL (13.5-17.5); Mean Corpuscular Hemoglobin 31.5 pg (28.0-32.0); Mean Corpuscular Hgb Conc. 33.2 g/dL (32.0-36.0); Mean Corpuscular Volume 94.9 fL (80.0-100.0); Red Blood Cells 3.31 10^6/uL (4.5-5.90)
[2017-12-02 16:24] LABS: Calcium 7.8 mg/dL (8.5-10.1)
[2017-12-02 16:30] LABS: Platelet Count (auto) 39 10^3/uL (140-450); Red Cell Distribution Width 23.4 % (11.8-14.3)
[2017-12-02 16:31] LABS: Band Neutrophils % (manual) 0; Basophils % (manual) 0 (0.0-2.0); Blast Cells 0; Eosinophils % (manual) 0 (0-7); Promyelocytes % 0
[2017-12-02 18:50] LABS: Lymphocytes % (manual) 25 (10.0-50.0); Metamyelocytes % 2; Monocytes % (manual) 14 (0-12); Myelocytes % 1; Reactive Lymphocytes 2
== END | disposition home or self-care (01) ==
LOC: LAB 11:07
PROVIDERS: ATTEND Internal Medicine Cardiovascular Disease
DX: D64.9 Anemia, unspecified (principal); I10 Essential (primary) hypertension; I48.91 Unspecified atrial fibrillation
CPT/HCPCS: 36415; 80048; 85007; 85027

== ENCOUNTER → 2017-12-27 | Outpatient (CLI) | payer OTHER ==
[2017-12-27 12:45] LABS: Basophils # (auto) 0 uL; Basophils % (auto) 0.9 % (0.0-2.0); Eosinophils # (auto) 0 uL; Eosinophils % (auto) 0.2 % (0.0-7.0); Hematocrit 33.2 % (41.0-53.0); Hemoglobin 11.1 g/dL (13.5-17.5); Lymphocytes # (auto) 1.1 uL; Lymphocytes % (auto) 40.7 % (10.0-50.0); Mean Corpuscular Hgb Conc. 33.3 g/dL (32.0-36.0); Mean Corpuscular Volume 92.9 fL (80.0-100.0); Monocytes # (auto) 0.2 uL; Monocytes % (auto) 6.3 % (0.0-12.0); Neutrophils # (auto) 1.4 uL; Neutrophils % (auto) 51.9 % (37.0-80.0); Nucleated Red Blood Cells % 0.2 %; Platelet Count (auto) 74 10^3/uL (140-450); Red Blood Cells 3.58 10^6/uL (4.5-5.90); White Blood Cell 2.7 10^3/uL (4.4-10.8)
[2017-12-27 12:50] LABS: Red Cell Distribution Width 21.4 % (11.8-14.3)
== END | disposition home or self-care (01) ==
LOC: LAB 09:24
PROVIDERS: ATTEND Internal Medicine Cardiovascular Disease
DX: D64.9 Anemia, unspecified (principal); I10 Essential (primary) hypertension; I48.91 Unspecified atrial fibrillation; Z87.891 Personal history of nicotine dependence
CPT/HCPCS: 36415; 85025